=== PATIENT | male | born 1955 | race African-American/Black ===

== ENCOUNTER 2018-09-23 10:08 | Emergency (ER) | payer SELFPAY ==
[~2018-09-23] VITALS: Ht 177.8 cm; Wt 70.0 kg
[2018-09-23] MEDS ORDERED: BACITRACIN3.5 GM TOP (11:06)
[2018-09-23 11:11] VITALS: BP 144/67
== END 2018-09-23 11:21 | disposition home or self-care (01) | DRG 918 ==
LOC: ED 10:08
PROC: 2W25X4Z Dressing of Back using Bandage (ICD-10-PCS; principal; 2018-09-23)
DX: T54.3X1A Toxic effect of corrosive alkalis and alkali-like substances, accidental (unintentional), initial encounter (principal); T21.55XA Corrosion of first degree of buttock, initial encounter; F17.200 Nicotine dependence, unspecified, uncomplicated; Y93.89 Activity, other specified; Y92.89 Other specified places as the place of occurrence of the external cause; Y99.0 Civilian activity done for income or pay

== ENCOUNTER 2024-03-30 06:14 | Inpatient (IN) | payer MEDICARE ==
[2024-03-30] VITALS (22 sets, daily range): BP systolic 87–144; BP diastolic 64–103
[~2024-03-30] VITALS: Ht 185.4 cm; Wt 55.4 kg
[~2024-03-30 06:14] MED LIST: ALLERGY RE50 MCG/ACT; BACITRACIN3.5 GM TOP; MEDDOSEPAK PO; METHOCARBAMOL500 MG PO; ZYRTEC10 MG PO
[2024-03-30] MEDS ORDERED: Pantoprazole Sodium 40 MG VIAL (Protonix) IV ONE (06:35)
--- NOTE | 2024-03-30 07:00 | NUR ---
PT IN ROOM
[2024-03-30 07:17] LABS: BASO% 0.1 % (0-3); HEMATOCRIT 48.2 % (39.0-50.0); IMMATURE GRANULOCYTES 0.3 % (0.0-5.0); LYMPH% 11.2 % (15-41); MEAN CELL VOLUME 100.8 fL CALC (80.0-100.0); MEAN CORPUSCULAR HGB 33.1 pG CALC (26.0-32.0); MEAN CORPUSCULAR HGB CONC 32.8 g/dL CAL (32.0-36.0); MONO% 3.8 % (2-13); NEUT# 13.03 thou/uL (1.82-7.42); NEUT% 84.6 % (42-76); RED BLOOD COUNT 4.78 mill/uL (4.70-6.10); RED CELL DISTRI WIDTH 12.1 % (11.5-15.5)
[2024-03-30 07:21] LABS: HEMOGLOBIN 15.8 g/dl (14.0-18.0)
[2024-03-30 07:36] LABS: ALBUMIN 4.4 g/dL (3.2-5.0); CREATININE 1.2 mg/dL (0.7-1.3); POTASSIUM 4.1 mmol/l (3.5-5.1); TOTAL PROTEIN 8.5 g/dL (6.3-8.2)
[2024-03-30 07:40] LABS: BILIRUBIN, TOTAL 2.1 mg/dL (0.2-1.3)
[2024-03-30] MEDS ORDERED: SODIUM CHLORIDE 0.9% 1,000 ML IV ONE (08:00)
[2024-03-30] MEDS ORDERED: cefTRIAXone SODIUM 2 GM in SODIUM CHLORIDE 0.9% 100 ML IV ONE (08:00)
[2024-03-30] MEDS ORDERED: AZITHROMYCIN 500 MG in SODIUM CHLORIDE 0.9% 500 ML IV ONE (08:45)
[2024-03-30] MEDS ORDERED: ASPIRINCHW 81MG PO (09:17)
--- NOTE | 2024-03-30 09:17 | NUR ---
PT MEDICATED PER EMAR, PT SITTING UP IN BED TO EAT, DENIES ANY OTHER NEEDS AT THIS TIME
--- NOTE | 2024-03-30 10:38 | NUR ---
Reassessment of patient completed. No distress noted. PT RESTING IN BED, VSS, CALL LIGHT WITHIN REACH, PT DENIES ANY NEEDS, LIGHTS DIMMED FOR COMFORT
[2024-03-30] MEDS ORDERED: ACETAMINOPHEN 325 MG/TAB PO PRN (11:00)
[2024-03-30] MEDS ORDERED: MAGNESIUM HYDROXIDE 30 ML UDC PO PRN (11:00)
[2024-03-30] MEDS ORDERED: Zaleplon 5 MG/CAP PO PRN (11:00)
[2024-03-30] MEDS ORDERED: methylPREDNISolone Sod Succ 40 MG/ML SDV IV SCH (12:00)
--- NOTE | 2024-03-30 13:16 | NUR ---
PT RESTING IN BED, VSS, CALL LIGHT WITHIN REACH, PT UP EATING LUNCH, PT READJUSTED IN THE BED WITH ADDITIONAL COVERS, PT DENIES ANY NEEDS AT THIS TIME
[2024-03-30] MEDS ORDERED: ALBUTEROL SULFATE 2.5 MG VIAL IN SCH (15:00)
--- NOTE | 2024-03-30 15:55 | NUR ---
PT IN BED RESTING, CLEANED THE PTS AREA, GAVE HIM A BOTTLE OF WATER, PT DENIES ANY NEEDS, LIGHTS DIMMED FOR COMFORT
--- NOTE | 2024-03-30 17:57 | NUR ---
CALLED [facility] GAVE PT INFO TO [facility] GON[facility]ALE[facility], PT TO BE TRANSPORTED TO [facility] [address] [address]
--- NOTE | 2024-03-30 19:45 | NUR ---
PT RESTING IN BED NO DISTRESS NOTED ON ADMISSION/ASSESSMENT. RT PLACED PT ON NC 3L DUE TO LOW O2 READING. OTHER VS WNL LUNGS DIMINISHED BUT CLEAR. IV FLUSHED WORKING PROPERLY SL. PT ALERT AND ORIENTATED X4. NO PAIN REPORTED AT THIS TIME. SNACKS PROVIDED WITH ORAL FLUIDS. SKIN INTACT NO EDEMA. CALL LIGHT WITHIN REACH. PT STATED UNDERSTANDING ON HOW TO USE IT. BED ALARM ON.
[2024-03-30] MEDS ORDERED: ENOXAPARIN SODIUM 40 MG/0.4 ML SYR SC SCH (21:00)
[2024-03-30] MEDS ORDERED: ENOXAPARIN SODIUM 30 MG/0.3 ML INJ SC SCH (21:00)
[2024-03-31] VITALS: BP 94/65
--- NOTE | 2024-03-31 00:07 | NUR ---
PT RESTING NO DISTRESS NOTED. PT AMBULATED TO RESTROOM WITH NO ASSISTANCE. CALL LIGHT WITHIN REACH. PLAN OF CARE ONGOING.
[2024-03-31 00:49] LABS: URINE BILIRUBIN - DIPSTICK Negative (NEGATIVE); URINE BLOOD DIPSTICK Negative (NEGATIVE); URINE COLOR Yellow; URINE GLUCOSE - DIPSTICK Negative (NEGATIVE); URINE KETONE Negative (NEGATIVE); URINE LEUK ESTERASE Negative (NEGATIVE); URINE NITRITE - DIPSTICK Negative (Negative); URINE PH 5.5 (4.5-8.0); URINE PROTEIN - DIPSTICK 100 mg/dL (NEG-TRACE); URINE SPECIFIC GRAVITY 1.015
[2024-03-31 00:55] LABS: URINE EPITHELIAL CELLS FEW EPI/hpf (0-FEW)
[2024-03-31 00:56] LABS: URINE BACTERIA MODERATE hpf
[2024-03-31 04:00] VITALS: BP 124/88
--- NOTE | 2024-03-31 04:45 | NUR ---
PT SLEEPING EASILY AROUSABLE NO DISTRESS NOTED ON EXAM. CALL LIGHT WITHIN REACH. BED ALARM ON. PLAN OF CARE ONGOING.
[2024-03-31 05:03] LABS: CREATININE 0.8 mg/dL (0.7-1.3)
[2024-03-31 05:16] LABS: BASO% 0.1 % (0-3); IMMATURE GRANULOCYTES 0.3 % (0.0-5.0); LYMPH% 5.3 % (15-41); MEAN CELL VOLUME 100.8 fL CALC (80.0-100.0); MEAN CORPUSCULAR HGB 32.9 pG CALC (26.0-32.0); MEAN CORPUSCULAR HGB CONC 32.6 g/dL CAL (32.0-36.0); MONO% 2.7 % (2-13); NEUT# 12.47 thou/uL (1.82-7.42); NEUT% 91.6 % (42-76); RED BLOOD COUNT 3.74 mill/uL (4.70-6.10); RED CELL DISTRI WIDTH 12.2 % (11.5-15.5)
[2024-03-31 05:18] LABS: HEMATOCRIT 37.7 % (39.0-50.0); HEMOGLOBIN 12.3 g/dl (14.0-18.0)
[2024-03-31 05:20] LABS: ALBUMIN 3.1 g/dL (3.2-5.0); BILIRUBIN, TOTAL 0.5 mg/dL (0.2-1.3)
[2024-03-31 07:38] VITALS: BP 122/81
--- NOTE | 2024-03-31 08:00 | NUR ---
Patient sitting in bed eating breakfast.
[2024-03-31] MEDS ORDERED: AZITHROMYCIN 500 MG/VIAL SDV IV SCH (09:00)
[2024-03-31 11:25] VITALS: BP 166/55
[2024-03-31] MEDS ORDERED: AZITHROMYCIN 500 MG in SODIUM CHLORIDE 0.9% 250 ML IV SCH (12:00)
--- NOTE | 2024-03-31 12:00 | NUR ---
Patient sitting in bed eating lunch.
--- NOTE | 2024-03-31 12:28 | NUR ---
patient was asked about sitting up in recliner for breakfast and lunch , but patient refused stating that he wants to eat the way he wants to in bed,and don't want to get up in chair, staff tried to encourage patient and also doctor wants to see him sitting up. patient stated he don't care what the doctor says. he staying in bed. still refused to get up.
[2024-03-31 15:21] VITALS: BP 123/86
--- NOTE | 2024-03-31 16:00 | NUR ---
Patient lying in bed with eyes open.
[2024-03-31 19:29] VITALS: BP 129/79
[2024-03-31] MEDS ORDERED: ENOXAPARIN SODIUM 40 MG/0.4 ML SYR SC SCH (21:00)
[2024-04-01 00:53] VITALS: BP 120/74
--- NOTE | 2024-04-01 04:00 | NUR ---
PATIENT SHCEDULED FOR XRAY. INFORMED PATIENT TEST WILL BE DONE NOW. PATIENT REFUSED STATING, "I DON'T WANT TO GO NOW". RADIOLOGY NOTIFIED.
[2024-04-01 05:02] VITALS: BP 130/79
--- NOTE | 2024-04-01 07:00 | NUR ---
PT LAYING IN BED RESTING WITH EYES CLOSED, AROUSES EASILY TO VERBAL STIMULI, PT A&O X3, PUPILS PERRL, NORMAL S1 S2 HEART SOUNDS, TELE MONITOR IN PLACE, RESP. EVEN AND UNLABORED, LUNG SOUNDS ARE DIMINISHED, ABD DISTENDED AND SOFT WITH ACTIVE BOWEL SOUNDS, SAFETY MEASURES REINFORCED, CALL MCCOLLUM WITHIN REACH
[2024-04-01 07:18] LABS: HEMATOCRIT 42.2 % (39.0-50.0); IMMATURE GRANULOCYTES 0.4 % (0.0-5.0); LYMPH% 4.5 % (15-41); MEAN CELL VOLUME 102.2 fL CALC (80.0-100.0); MEAN CORPUSCULAR HGB 33.9 pG CALC (26.0-32.0); MEAN CORPUSCULAR HGB CONC 33.2 g/dL CAL (32.0-36.0); MONO% 4.1 % (2-13); NEUT# 19.08 thou/uL (1.82-7.42); RED BLOOD COUNT 4.13 mill/uL (4.70-6.10); RED CELL DISTRI WIDTH 12.1 % (11.5-15.5)
[2024-04-01 07:30] LABS: ALBUMIN 3.7 g/dL (3.2-5.0); CREATININE 0.8 mg/dL (0.7-1.3); POTASSIUM 4.5 mmol/l (3.5-5.1); TOTAL PROTEIN 6.8 g/dL (6.3-8.2)
[2024-04-01 07:35] VITALS: BP 141/92
[2024-04-01 07:42] LABS: BILIRUBIN, TOTAL 0.8 mg/dL (0.2-1.3)
[2024-04-01] MEDS ORDERED: DOXYCYCLINE HY100 M1 PO (11:14)
[2024-04-01] MEDS ORDERED: MEDDOSEPAK PO (11:16)
[2024-04-01 11:33] VITALS: BP 140/91
--- NOTE | 2024-04-01 12:00 | NUR ---
PT LAYING IN BED RESTING WITH EYE CLOSED, AROUSES EASILY TO VERBAL STIMULI, PT DENIES ANY NEEDS AT THIS TIME, CALL MCCOLLUM WITHIN REACH
--- NOTE | 2024-04-01 15:59 | NUR ---
Discharge instructions given. Patient verbalizes understanding of same. Discharged in stable condition via Wheelchair to Home with staff. All belongings sent with pt.
== END 2024-04-01 16:00 | disposition home or self-care (01) | DRG 194 ==
LOC: ED 06:14 → ED-I 08:50 → ED 09:11 → ED-I 09:12 → MS2 09:12
PROVIDERS: Family Medicine; Nurse Practitioner Family; ADMIT Internal Medicine; ATTEND Internal Medicine
DX: J18.9 Pneumonia, unspecified organism (principal); J44.0 Chronic obstructive pulmonary disease with (acute) lower respiratory infection; J44.1 Chronic obstructive pulmonary disease with (acute) exacerbation; I10 Essential (primary) hypertension; J43.9 Emphysema, unspecified; K59.00 Constipation, unspecified; F17.200 Nicotine dependence, unspecified, uncomplicated; Z20.822 Contact with and (suspected) exposure to COVID-19
CPT/HCPCS: J0456; J0696; J1100; J1650; J2470; Q9967

== ENCOUNTER 2024-06-09 23:50 | Emergency (ER) | payer MEDICARE ==
[~2024-06-09] VITALS: Ht 185.4 cm; Wt 50.6 kg
[~2024-06-09 23:50] MED LIST changes: +ASPIRINCHW 81MG PO; +DOXYCYCLINE HY100 M1 PO
[2024-06-10 00:34] LABS: BASO% 0.1 % (0-3); HEMATOCRIT 46.7 % (39.0-50.0); HEMOGLOBIN 14.9 g/dl (14.0-18.0); LYMPH% 19.7 % (15-41); MEAN CORPUSCULAR HGB 31.9 pG CALC (26.0-32.0); MEAN CORPUSCULAR HGB CONC 31.9 g/dL CAL (32.0-36.0); MONO% 4.4 % (2-13); NEUT# 5.51 thou/uL (1.82-7.42); NEUT% 75.8 % (42-76); RED BLOOD COUNT 4.67 mill/uL (4.70-6.10); RED CELL DISTRI WIDTH 12.5 % (11.5-15.5)
[2024-06-10 00:46] VITALS: BP 148/116
[2024-06-10 00:47] LABS: ALBUMIN 4.7 g/dL (3.2-5.0); BILIRUBIN, TOTAL 1.4 mg/dL (0.2-1.3); CHOLESTEROL HDL RATIO 2.3 (<4.4 (CALC)); POTASSIUM 4.4 mmol/l (3.5-5.1)
[2024-06-10] MEDS ORDERED: SODIUM CHLORIDE 0.9% 1,000 ML IV ONE (00:50)
[2024-06-10 01:01] VITALS: BP 166/105
[2024-06-10 01:02] LABS: PROTHROMBIN TIME 10.8 SECONDS (9.0-12.5)
[2024-06-10] MEDS ORDERED: Heparin SODIUM (Porcine) 500 ML IV ONE (01:10)
[2024-06-10] MEDS ORDERED: ASPIRIN 81 MG/TAB PO ONE (01:10)
[2024-06-10] MEDS ORDERED: Heparin SODIUM (Porcine) 5,000 UNITS/ML SDV IV ONE (01:10)
[2024-06-10 01:15] VITALS: BP 175/118
[2024-06-10 01:30] VITALS: BP 165/126
[2024-06-10 01:45] VITALS: BP 167/125
[2024-06-10 02:00] VITALS: BP 147/116
== END 2024-06-10 02:00 ==
LOC: ED 23:50
PROVIDERS: Family Medicine
DX: I63.531 Cerebral infarction due to unspecified occlusion or stenosis of right posterior cerebral artery (principal); R47.81 Slurred speech; G81.94 Hemiplegia, unspecified affecting left nondominant side; R29.701 NIHSS score 1; R79.89 Other specified abnormal findings of blood chemistry; I10 Essential (primary) hypertension; J44.9 Chronic obstructive pulmonary disease, unspecified; I25.2 Old myocardial infarction; F17.200 Nicotine dependence, unspecified, uncomplicated; Z79.82 Long term (current) use of aspirin
CPT/HCPCS: J1644; Q9967